=== PATIENT | female | born 1960 | race Caucasian/White ===

== ENCOUNTER → 2018-11-28 | Outpatient (CLI) | payer BC ==
[~2018-11-28] MED LIST: BUDEPRION XL300 MG PO; CARDI-OMEGA1000 MG PO; GLUCOSAMIN 500 PO; GLUCOSAMINE500 M1 PO; WELLBUTRIN 75MG75 MG PO
== END ==
LOC: MC.RAD 10:14
DX: Z12.31 Encounter for screening mammogram for malignant neoplasm of breast (principal)

== ENCOUNTER → 2019-12-02 | Outpatient (CLI) | payer BC | LOC: MC.RAD 10:14 | DX: Z12.31 Encounter for screening mammogram for malignant neoplasm of breast (principal); R92.8 Other abnormal and inconclusive findings on diagnostic imaging of breast; Z80.3 Family history of malignant neoplasm of breast ==

== ENCOUNTER → 2019-12-09 | Outpatient (CLI) | payer BC | LOC: MC.RAD 08:52 | DX: R92.8 Other abnormal and inconclusive findings on diagnostic imaging of breast (principal); Z80.3 Family history of malignant neoplasm of breast ==

== ENCOUNTER → 2019-12-16 | Outpatient (CLI) | payer BC | LOC: MC.RAD 07:56 | DX: N64.89 Other specified disorders of breast (principal) ==

== ENCOUNTER → 2021-06-28 | Outpatient (CLI) | payer BC | LOC: COL.RAD 14:15 | DX: R14.0 Abdominal distension (gaseous) (principal); Z90.711 Acquired absence of uterus with remaining cervical stump ==